=== PATIENT | female | born 1990 | race Caucasian/White ===

== ENCOUNTER 2019-05-09 17:25 | Emergency (ER) | payer SELFPAY ==
[~2019-05-09] VITALS: Ht 167.6 cm; Wt 97.5 kg
[2019-05-09 17:43] VITALS: BP 145/89
--- NOTE | 2019-05-09 17:47 | NUR ---
urine cup handed to pt for sample
--- NOTE | 2019-05-09 17:55 | NUR ---
PT AMBULATED TO ER BED 01
--- NOTE | 2019-05-09 18:15 | NUR ---
c/o llq pain x 2 days with mild nausea and 1 episode of emesis---- last bm 2 days ago--- hx--denies rx---none
--- NOTE | 2019-05-09 18:18 | NUR ---
xray at bedside.
[2019-05-09 18:52] LABS: APPEARANCE,URINE BLOODY (CLEAR); BILIRUBIN,URINE 1+ (NEGATIVE); BLOOD, URINE 3+ (NEGATIVE); COLOR,URINE RED (YELLOW); LEUKOCYTE ESTERASE ,URINE 2+ (NEGATIVE); NITRITE, URINE POSITIVE (NEGATIVE); UGLUCOSE TRACE (NEGATIVE)
--- NOTE | 2019-05-09 19:02 | NUR ---
REPORT RECEIVED FROM ELIZABETH PANG.
[2019-05-09 19:05] LABS: RBC,URINE >100 /HPF (0-5); WBC,URINE 0-5 /HPF (0-5)
--- NOTE | 2019-05-09 19:40 | NUR ---
Dr. Jennings examining patient.
[2019-05-09 20:02] VITALS: BP 145/89
--- NOTE | 2019-05-09 20:02 | NUR ---
PT DISCHARGED WITH PAPERWORK. EDUCATED PT REGARDING MEDICATIONS AND D/C INSTRUCTIONS. PT VERBALIZED TEACHING WITH UNDERSTANDING. TOLD PT TO FOLLOW UP WITH PCP AND WHEN TO RETURN TO ED. PT AT STABLE CONDITION. ALL QUESTIONS ANSWERED.
== END 2019-05-09 20:02 | disposition home or self-care (01) ==
LOC: MED 17:25
DX: N39.0 Urinary tract infection, site not specified (principal); R11.2 Nausea with vomiting, unspecified
CPT/HCPCS: 74018; 81001; 81025; 87086; 99284; Q0092